=== PATIENT | male | born 1935 | race Caucasian/White ===

== ENCOUNTER 2018-06-09 09:24 | Emergency (ER) | payer OTHER ==
[2018-06-09] MEDS: SODIUM CHLORIDE 0.9% 1L BAG IV* (09:51)
[2018-06-09 10:03] LABS: ADD MAN DIFF? NO
[2018-06-09 10:12] LABS: WHITE BLOOD COUNT 10.9 10^3/ul (4.8-10.8)
[2018-06-09 10:12] LABS: BASOPHILS % 0.2 % (0.0-2.0); HEMATOCRIT 34.7 % (42.0-52.0); HEMOGLOBIN 11.6 g/dl (14.0-18.0); LYMPHOCYTES # 1.2 10^3/ul (0.8-2.9); LYMPHOCYTES % 11.3 % (15.0-51.0); MEAN CORPUSCULAR HEMOGLOBIN 28.7 pg (29.0-33.0); MEAN CORPUSCULAR HGB CONC 33.4 g/dl (32.0-37.0); MEAN CORPUSCULAR VOLUME 85.9 fl (82.0-101.0); MEAN PLATELET VOLUME 10.8 fl (7.4-10.4); MONOCYTE # 0.5 10^3/ul (0.3-0.9); MONOCYTES % 4.8 % (0.0-11.0); NEUTROPHILS % 83.2 % (39.0-77.0); PLATELET COUNT 146 10^3/UL (140-415); RED BLOOD COUNT 4.04 10^6/ul (4.70-6.10); RED CELL DISTRIBUTION WIDTH 14.6 % (11.5-14.5)
[2018-06-09] MEDS: ACETAMINOPHEN 650 MG SUPP PR (10:15)
[2018-06-09 10:29] LABS: LACTIC ACID 1.5 mmol/L (0.5-2.0)
[2018-06-09 10:32] LABS: INR 1.18; PARTIAL THROMBOPLASTIN TIME 26.6 Sec (25.0-35.0); PROTIME 15.2 Sec (11.9-14.9); PT RATIO 1.2
[2018-06-09 11:14] LABS: ALANINE AMINOTRANSFERASE 26 IU/L (13-69); ALBUMIN 3.4 g/dl (3.3-4.9); ALBUMIN/GLOBULIN RATIO 1.17; ALKALINE PHOSPHATASE 72 IU/L (42-121); ANION GAP 11 (8-16); ASPARTATE AMINO TRANSFERASE 29 IU/L (15-46); BILIRUBIN,INDIRECT 0.8 mg/dl (0-1.1); BILIRUBIN,TOTAL 0.8 mg/dl (0.2-1.3); BLOOD UREA NITROGEN 15 mg/dl (7-20); CALCIUM 8.4 mg/dl (8.4-10.2); CARBON DIOXIDE 24 mmol/L (21-31); CHLORIDE 106 mmol/L (97-110); CREATININE 0.74 mg/dl (0.61-1.24); GLUCOSE 116 mg/dl (70-220); LIPASE 55 U/L (23-300); POTASSIUM 3.4 mmol/L (3.5-5.1); SODIUM 138 mmol/L (135-144); TOTAL PROTEIN 6.3 g/dl (6.1-8.1)
[2018-06-09] MEDS: CEFTRIAXONE 1 GM/50 ML (PMX) 50 ML IVPB (11:20)
[2018-06-09 11:37] LABS: TROPONIN-I 0.036 ng/ml (0.000-0.120)
[2018-06-09 11:49] LABS: ADD UMIC NO; UR ASCORBIC ACID 40 mg/dL (NEGATIVE); UR BILIRUBIN (Dip) NEGATIVE (NEGATIVE); UR BLOOD (Dip) NEGATIVE (NEGATIVE); UR CLARITY CLEAR (CLEAR); UR COLOR YELLOW (YELLOW); UR GLUCOSE (Dip) NEGATIVE (NEGATIVE); UR KETONES (Dip) TRACE mg/dL (NEGATIVE); UR LEUKOCYTE ESTERASE (Dip) NEGATIVE Leu/ul (NEGATIVE); UR NITRITE (Dip) NEGATIVE (NEGATIVE); UR SPECIFIC GRAVITY (Dip) 1.019 (1.003-1.030); UR TOTAL PROTEIN (Dip) NEGATIVE (NEGATIVE); UR UROBILINOGEN (Dip) 2+ mg/dL (NEGATIVE)
[2018-06-09] MEDS: ATROPINE 1 MG/10 ML SYRINGE IV (12:35)
[2018-06-09] MEDS: IBUPROFEN 600 MG TAB PO (14:32)
== END 2018-06-09 15:37 | disposition short-term general hospital (02) ==
LOC: E/R 09:24
DX: G93.40 Encephalopathy, unspecified (principal); R00.1 Bradycardia, unspecified; E86.0 Dehydration; R50.9 Fever, unspecified; R55 Syncope and collapse; Z79.82 Long term (current) use of aspirin
CPT/HCPCS: 36415; 70450; 71045; 80053; 81003; 83605; 83690; 84484; 85025; 85610; 85730; 87040; 87086; 93005; 96374; 96375; 99291-25